=== PATIENT | female | born 1975 | race Caucasian/White ===

== ENCOUNTER 2023-02-19 19:01 | Emergency (ER) | payer OTHER ==
[~2023-02-19] VITALS: Ht 160 cm; Wt 73.5 kg
[2023-02-19 19:31] VITALS: BP_SYST 120; PULSE 71; RESP 20; TEMP 98.9; O2SAT 93
[2023-02-19] MEDS ORDERED: ACET-2634 PO (23:59)
== END 2023-02-20 00:15 | disposition home or self-care (01) ==
LOC: SED 19:01
DX: S01.81XA Laceration without foreign body of other part of head, initial encounter (principal); Z79.899 Other long term (current) drug therapy; W10.9XXA Fall (on) (from) unspecified stairs and steps, initial encounter; Y93.89 Activity, other specified; Y92.89 Other specified places as the place of occurrence of the external cause; Y99.8 Other external cause status
CPT/HCPCS: 99282